=== PATIENT | male | born 1970 | race Caucasian/White ===

== ENCOUNTER → 2020-07-01 13:24 | Outpatient (BNVA) | payer OTHER, SELFPAY | PROVIDERS: Family Provider Family Medicine; PCP Nurse Practitioner Family; Visit Provider Family Medicine | DX: Z20.828 Contact with and (suspected) exposure to other viral communicable diseases (principal) | CPT/HCPCS: 87635 ==

== ENCOUNTER → 2021-07-13 10:33 | Outpatient (BNVA) | payer OTHER, SELFPAY | PROVIDERS: Family Provider Family Medicine; PCP Nurse Practitioner Family; Visit Provider Nurse Practitioner Family | DX: Z20.822 Contact with and (suspected) exposure to COVID-19 (principal) | CPT/HCPCS: 87635 ==

== ENCOUNTER → 2023-03-07 16:00 | Outpatient (BNVA) | payer OTHER, SELFPAY | PROVIDERS: Family Provider Family Medicine; PCP Family Medicine; Visit Provider Clinical Nurse Specialist Adult Health | DX: J06.9 Acute upper respiratory infection, unspecified (principal); Z20.822 Contact with and (suspected) exposure to COVID-19 | CPT/HCPCS: 87426 ==